=== PATIENT | female | born 1990 | race American Indian/Alaskan Native ===

== ENCOUNTER 2021-11-13 11:07 | Emergency (ER) | payer BC ==
[2021-11-13 11:19] VITALS: BP 137/90; PULSE 78
[2021-11-13 12:24] LABS: ANION GAP 10.8 meq/L (7-15)
[2021-11-13] MEDS ORDERED: methylPREDNISolone Sodium Succinate 125 MG/2 ML SDV IVPUSH ONE (13:05)
[2021-11-13] MEDS ORDERED: diphenhydrAMINE 50 MG/ML SDV IVPUSH ONE (13:07)
[2021-11-13] MEDS ORDERED: Potassium Bicarbonate/Cit Ac 20 MEQ Effervescent Tab PO ONE (13:07)
[2021-11-13] MEDS ORDERED: Ondansetron 4 MG/2 ML SDV ONE (13:22)
[2021-11-13] MEDS ORDERED: Ondansetron 4 MG/2 ML SDV IVPUSH ONE (13:32)
[2021-11-13] MEDS ORDERED: Sodium Chloride 0.9% 10 ML Syringe FLUSH PRN (13:36)
[2021-11-13] MEDS ORDERED: Sodium Chloride 0.9% 1,000 ML IV SCH (13:45)
== END 2021-11-13 16:03 | disposition home or self-care (01) ==
LOC: LL.ED 11:07 → MERGE 11:07 → LL.ED 16:03
DX: U07.1 COVID-19 (principal); F17.210 Nicotine dependence, cigarettes, uncomplicated; E66.9 Obesity, unspecified; Z68.34 Body mass index [BMI] 34.0-34.9, adult
CPT/HCPCS: 36415; 80053; 83735; 85025; 96361; 96374; 96375; 99283; 99284-25; A9270-GY; J1200; J2405; J2930; J3490; J7030

== ENCOUNTER 2023-09-05 21:57 | Observation (INO) | payer BC, MEDICAID ==
[2023-09-05] MEDS: Pantoprazole 40 MG Vial IVPUSH ONE (22:41)
[2023-09-05 22:42] LABS: BASOPHILS ABSOLUTE AUTO 0.02 K/uL (0.00-0.20); BASOPHILS PERCENT AUTO 0.2 % (0.0-2.0); EOSINOPHILS ABSOLUTE AUTO 0.48 K/uL (0.00-0.50); EOSINOPHILS PERCENT AUTO 3.7 % (0.0-5.0); HEMATOCRIT 41.6 % (34.0-46.0); HEMOGLOBIN 13.9 g/dL (11.7-15.5); LYMPHOCYTES ABSOLUTE AUTO 2.03 K/uL (0.50-3.50); LYMPHOCYTES PERCENT AUTO 15.6 % (10.0-50.0); MEAN CORPUSCULAR HEMOGLOBIN 30.6 pg (28.2-33.3); MEAN CORPUSCULAR HGB CONC 33.4 g/dL (31.7-36.0); MEAN CORPUSCULAR VOLUME 91.6 fL (84.0-98.0); MONOCYTES ABSOLUTE AUTO 1.04 K/uL (0.00-1.00); NEUTROPHILS ABSOLUTE AUTO 9.41 K/uL (1.40-7.00); NEUTROPHILS PERCENT AUTO 72.5 % (45.0-80.0); PLATELET COUNT,PLT 222 K/uL (150-350); RED BLOOD CELL COUNT 4.54 M/uL (3.77-5.09); RED CELL DISTRIBUTION WIDTH 14.3 % (11.2-14.1)
[2023-09-05] MEDS: Sodium Chloride 0.9% 10 ML Syringe FLUSH PRN (22:42)
[2023-09-05] MEDS: Sodium Chloride 0.9% 1,000 ML IV ONE (22:43)
[2023-09-05 22:55] LABS: ALANINE AMINOTRANSFERASE,ALT 29 U/L (12-78); ALBUMIN 3.9 g/dL (3.4-5.0); ALKALINE PHOSPHATASE 137 IU/L (46-116); ANION GAP 7.6 meq/L (7-15); ASPARTATE AMNIOTRANSFERASE,AST 12 U/L (15-37); BILIRUBIN TOTAL 0.2 mg/dL (0.2-1.0); BLOOD UREA NITROGEN,BUN 15 mg/dL (7-18); CALCIUM 8.5 mg/dL (8.5-10.1); CARBON DIOXIDE,CO2 27.4 mmol/L (21.0-32.0); CHLORIDE,CL 104 mmol/L (98-107); CREATININE 0.86 mg/dL (0.51-1.17); GLUCOSE RANDOM 109 mg/dL (70-99); PROTEIN TOTAL,TP 7.5 g/dL (6.4-8.2); SODIUM,NA 139 mmol/L (136-145)
[2023-09-05 22:56] LABS: BILIRUBIN,URINE NEGATIVE (NEGATIVE); COLOR,URINE YELLOW; GLUCOSE,URINE NEGATIVE (NEGATIVE); KETONES,URINE NEGATIVE (NEGATIVE); LEUKOCYTE ESTERASE,URINE NEGATIVE (NEGATIVE); NITRITE,URINE NEGATIVE (NEGATIVE); OCCULT BLOOD,URINE MODERATE (NEGATIVE); PROTEIN,URINE NEGATIVE (NEGATIVE); UROBILINOGEN,URINE 0.2 E.U./dL (0.2-1.0)
[2023-09-05 22:57] LABS: APPEARANCE,URINE CLOUDY; EPITHELIAL CELLS,URINE FEW /LPF; WBC,URINE 0-5 /HPF
[2023-09-05 22:58] LABS: ESTIMATED GFR 92 mL/min (>=60)
[2023-09-05] MEDS ORDERED: Ondansetron 4 MG/2 ML SDV IVPUSH PRN (23:06)
[2023-09-05] MEDS ORDERED: traMADol 50 MG Tab PO PRN (23:11)
[2023-09-05] MEDS ORDERED: Morphine 4 MG/ML Syringe IVPUSH PRN (23:12)
[2023-09-05] MEDS: Dicyclomine 20 MG Tab PO ONE (23:23)
[2023-09-05] MEDS: Acetaminophen 325 MG Tab PO PRN (23:23)
[2023-09-06] MEDS: Sodium Chloride 0.9% 1,000 ML IV ONE (00:05)
[2023-09-06] MEDS: Dicyclomine 20 MG Tab PO ONE (08:31)
[2023-09-06 08:57] LABS: BASOPHILS ABSOLUTE AUTO 0.02 K/uL (0.00-0.20); BASOPHILS PERCENT AUTO 0.2 % (0.0-2.0); EOSINOPHILS ABSOLUTE AUTO 0.52 K/uL (0.00-0.50); EOSINOPHILS PERCENT AUTO 4.8 % (0.0-5.0); HEMATOCRIT 41.3 % (34.0-46.0); HEMOGLOBIN 13.6 g/dL (11.7-15.5); LYMPHOCYTES ABSOLUTE AUTO 1.65 K/uL (0.50-3.50); LYMPHOCYTES PERCENT AUTO 15.2 % (10.0-50.0); MEAN CORPUSCULAR HEMOGLOBIN 30.1 pg (28.2-33.3); MEAN CORPUSCULAR HGB CONC 32.9 g/dL (31.7-36.0); MEAN CORPUSCULAR VOLUME 91.4 fL (84.0-98.0); MONOCYTES ABSOLUTE AUTO 0.84 K/uL (0.00-1.00); MONOCYTES PERCENT AUTO 7.7 % (2.0-14.0); NEUTROPHILS ABSOLUTE AUTO 7.86 K/uL (1.40-7.00); NEUTROPHILS PERCENT AUTO 72.1 % (45.0-80.0); PLATELET COUNT,PLT 203 K/uL (150-350); RED BLOOD CELL COUNT 4.52 M/uL (3.77-5.09); RED CELL DISTRIBUTION WIDTH 14.4 % (11.2-14.1); WHITE BLOOD CELL COUNT,WBC 10.9 K/uL (4.0-10.2)
[2023-09-06 09:03] VITALS: BP 133/77; PULSE 70
[2023-09-06 09:06] LABS: ANION GAP 6.7 meq/L (7-15); CALCIUM 8.2 mg/dL (8.5-10.1); CARBON DIOXIDE,CO2 27.3 mmol/L (21.0-32.0); CREATININE 0.64 mg/dL (0.51-1.17); EST CRCL DRUG DOSING (CG) 131.88 mL/min; POTASSIUM,K 3.9 mmol/L (3.5-5.1)
[2023-09-06] MEDS: Iopamidol 612 MG/ML 100 ML Bottle IVPUSH ONE (09:14)
[2023-09-06] MEDS: Diatrizoate Meglumine/Diatrizoate Sodium 37% 30 ML Bottle PO ONE (09:15)
[2023-09-06] MEDS: Dicyclomine 20 MG Tab PO PRN (11:22)
== END 2023-09-06 11:30 | disposition home or self-care (01) ==
LOC: LL.ED 21:57 → LL.MS 23:05
PROVIDERS: ADMIT Emergency Medicine; ATTEND Emergency Medicine
DX: K52.9 Noninfective gastroenteritis and colitis, unspecified (principal); K92.1 Melena; F41.9 Anxiety disorder, unspecified; F32.A Depression, unspecified; E66.9 Obesity, unspecified; F17.210 Nicotine dependence, cigarettes, uncomplicated; Z79.2 Long term (current) use of antibiotics; Z79.899 Other long term (current) drug therapy; Z91.030 Bee allergy status; Z68.30 Body mass index [BMI] 30.0-30.9, adult
CPT/HCPCS: 36415; 74019; 74177; 80048; 80053; 81001; 81025; 82272; 83605; 85025; 87045; 87046; 96374; 99223; 99238; 99285-25; A9270-GY; C9113; G0378; J3490; J7030; Q9963; Q9967

== ENCOUNTER 2025-01-15 23:31 | Emergency (ER) | payer BC, MEDICAID ==
[2025-01-15 23:46] VITALS: BP 138/74; PULSE 85
[2025-01-15] MEDS: Ondansetron 4 MG/2 ML SDV IVPUSH ONE (23:57)
[2025-01-15] MEDS: Sodium Chloride 0.9% 10 ML Syringe FLUSH PRN (23:58)
[2025-01-16] MEDS: Ketorolac 30 MG/ML SDV IVPUSH ONE (00:10)
== END 2025-01-16 00:50 | disposition home or self-care (01) ==
LOC: LL.ED 23:31
DX: G43.909 Migraine, unspecified, not intractable, without status migrainosus (principal); E66.9 Obesity, unspecified; F17.200 Nicotine dependence, unspecified, uncomplicated; Z91.030 Bee allergy status; Z79.899 Other long term (current) drug therapy; Z68.42 Body mass index [BMI] 45.0-49.9, adult
CPT/HCPCS: 96361; 96374; 99283; A9270; J2405; J7030